=== PATIENT | male | born 1955 | race African-American/Black ===

== ENCOUNTER 2018-02-25 21:17 | Inpatient (IN) ==
[2018-02-25] MEDS ORDERED: PANTOPRAZOLE 40 MG VIAL IV STA (22:18)
[2018-02-25] MEDS ORDERED: SODIUM CHLORIDE 0.9% 1,000 ML IV STA (22:18)
[2018-02-25] MEDS ORDERED: ONDANSETRON 4 MG/2 ML VIAL IV STA (22:18)
[2018-02-25] MEDS ORDERED: ONDANSETRON 4 MG/2 ML VIAL ONE (22:57)
[2018-02-25] MEDS ORDERED: PANTOPRAZOLE 40 MG VIAL IV ONE (22:57)
[2018-02-25 23:58] LABS: Lactic Acid 1.6 MMOL/L (0.4-2.0)
[2018-02-26] LABS: Basophils % 0.5 % (0.0-0.8); Eosinophils # 0.2 10*3/uL (0.0-0.87); Eosinophils % 4.4 % (0.00-10.9); Hematocrit 33.1 VOL% (42.0-52.0); Immature Granulocytes % 0.5 %; Immature Granulocytes Absolute 0.02 #; Lymphocytes # 0.5 10*3/uL (1.4-4.0); Lymphocytes % 12.7 % (21.2-54.2); Mean Corpuscular HGB Conc 33.2 GM/DL (32-36); Mean Corpuscular Hemoglobin 25 PG (27-34); Mean Corpuscular Volume 75.1 FL (87-102); Mean Platelet Volume 10.7 FL (9.6-12.0); Monocytes # 0.4 10*3/uL (0.11-0.8); Monocytes % 10.8 % (1.7-12.7); Neutrophils # 2.9 10*3/uL (1.4-7.4); Neutrophils % 71.1 % (38.7-73.9); Platelet Count 156 T/CUMM (130-400); Red Blood Count 4.41 MC/CUMM (3.8-5.5); Red Cell Distribution Width 18.1 % (9.3-17.3); White Blood Count 4.1 T/CUMM (4-12)
[2018-02-26 00:20] LABS: Apearance,Urine Slightly Hazy (Clear); Bilirubin,Urine Negative (Negative); Blood, Urine Negative (Negative); Glucose,Urine (UA) Negative (Negative); Hyaline Casts,Urine 3 /LPF (0-3); Ketones,Urine Negative (Negative); Mucus,Urine Occasional /LPF (Occasional); Nitrite,Urine Negative (Negative); Protein,Urine 30 MG/DL; RBC,Urine 2 /HPF (0-4); Squamous Epithelial Cell,Urine Occasional /HPF (0-10); Urine Color Amber (Yellow); Urine Specific Gravity 1.029 (1.001-1.035); WBC,Urine 1 /HPF (0-6)
[2018-02-26 00:34] LABS: Alanine Aminotransferase 194 U/L (16-61); Albumin 2.6 G/DL (3.4-5.0); Alkaline Phosphatase 309 U/L (45-117); Amylase 100 U/L (25-115); Aspartate Amino Transferase 448 U/L (0-37); Blood Urea Nitrogen 17 MG/DL (7-18); Calcium 8.4 MG/DL (8.5-10.1); Glucose 82 MG/DL (74-106); Osmolality,Calculated 273.8 MOS/KG (273-304); Potassium 4.3 MMOL/L (3.5-5.1); Sodium 137 MMOL/L (136-145); Total Protein 6.2 G/DL (6.4-8.3); Troponin I Only < 0.015 NG/ML (0.00-0.045)
[2018-02-26] MEDS ORDERED: FLUCONAZOLE INJ 200 MG in PREMIX 1 EACH IV ONE (00:53)
[2018-02-26] MEDS ORDERED: TEMAZEPAM 7.5 MG CAPSULE PO PRN (02:08)
[2018-02-26] MEDS ORDERED: MYLANTA/LIDO VISC 2:1 300 ML BOTTLE SWISH/SWAL PRN (02:08)
[2018-02-26] MEDS ORDERED: MYLANTA/LIDO VISC 2:1 300 ML BOTTLE SWISH/SPIT PRN (02:08)
[2018-02-26] MEDS ORDERED: LACTULOSE 20 GM/30 ML UDCUP PO PRN (02:08)
[2018-02-26] MEDS ORDERED: ALUMINUM/MAGNES/SIMETH MAX STR 30 ML UDCUP PO PRN (02:08)
[2018-02-26] MEDS ORDERED: diphenhydrAMINE CAP 25 MG CAPSULE PO PRN (02:08)
[2018-02-26] MEDS ORDERED: ONDANSETRON 4 MG/2 ML VIAL IV PRN (02:08)
[2018-02-26] MEDS ORDERED: guaiFENesin 200 MG/10 ML UDCUP PO PRN (02:08)
[2018-02-26] MEDS ORDERED: BENZTROPINE 2 MG/2 ML AMP IV PRN (02:08)
[2018-02-26] MEDS ORDERED: ALPRAZolam 0.25 MG TABLET PO PRN (02:08)
[2018-02-26] MEDS ORDERED: ACETAMINOPHEN 325 MG TABLET PO PRN (02:08)
[2018-02-26] MEDS: SODIUM CHLORIDE 0.9% 1,000 ML IV SCH ×2 (03:40→17:04)
[2018-02-26 06:44] LABS: Albumin 2.3 G/DL (3.4-5.0); Bilirubin,Total 1.3 MG/DL (0.2-1.0); Calcium 8.1 MG/DL (8.5-10.1); Osmolality,Calculated 275.5 MOS/KG (273-304); Potassium 4.2 MMOL/L (3.5-5.1); Total Protein 5.3 G/DL (6.4-8.3); Uric Acid 6.2 MG/DL (3.5-7.2)
[2018-02-26] MEDS ORDERED: DEXTROSE 50% 25 GM/50 ML VIAL IV PRN (06:57)
[2018-02-26 08:14] LABS: Apearance,Urine CLEAR (Clear); Bilirubin,Urine Negative (Negative); Blood, Urine Negative (Negative); Glucose,Urine (UA) Negative (Negative); Ketones,Urine Negative (Negative); Mucus,Urine Occasional /LPF (Occasional); Nitrite,Urine Negative (Negative); Protein,Urine Negative; RBC,Urine <1 /HPF (0-4); Squamous Epithelial Cell,Urine Occasional /HPF (0-10); Urine Color Yellow (Yellow); WBC,Urine <1 /HPF (0-6)
[2018-02-26] MEDS ORDERED: ETOPOSIDE 160 MG in SODIUM CHLORIDE 0.9% 500 ML IV ONE (09:00)
[2018-02-26] MEDS: PANTOPRAZOLE 40 MG VIAL IV SCH (09:12)
[2018-02-26] MEDS ORDERED: MORPHINE 4 MG/1 ML VIAL IV SCH (21:00)
[2018-02-27 06:14] LABS: Basophils % 0.8 % (0.0-0.8); Eosinophils # 0.2 10*3/uL (0.0-0.87); Hematocrit 31.2 VOL% (42.0-52.0); Hemoglobin 10.8 GM/DL (14.0-18.0); Immature Granulocytes % 0.5 %; Immature Granulocytes Absolute 0.02 #; Lymphocytes # 0.3 10*3/uL (1.4-4.0); Lymphocytes % 8.5 % (21.2-54.2); Mean Corpuscular HGB Conc 34.6 GM/DL (32-36); Mean Corpuscular Hemoglobin 25 PG (27-34); Mean Corpuscular Volume 73.4 FL (87-102); Mean Platelet Volume 10.3 FL (9.6-12.0); Monocytes # 0.1 10*3/uL (0.11-0.8); Neutrophils # 3.3 10*3/uL (1.4-7.4); Neutrophils % 83.2 % (38.7-73.9); Platelet Count 122 T/CUMM (130-400); Red Blood Count 4.25 MC/CUMM (3.8-5.5); Red Cell Distribution Width 18.9 % (9.3-17.3)
[2018-02-27 06:53] LABS: Band Neutrophils 1 % (0-10); Eosinophils 5 % (0-10); Lymphocytes 3 % (20-55); Segmented Neutrophils 91 % (50-85); Total Cells Counted 100
[2018-02-27 06:54] LABS: Giant Platelets Few; Hypochromasia 1+; Ovalocytes Slight; Platelet Estimate Normal; Target Cells Few
[2018-02-27 06:56] LABS: Albumin 2.1 G/DL (3.4-5.0); Bilirubin,Total 1.7 MG/DL (0.2-1.0); Calcium 8.4 MG/DL (8.5-10.1); Osmolality,Calculated 273.7 MOS/KG (273-304); Potassium 4.4 MMOL/L (3.5-5.1); Total Protein 5.3 G/DL (6.4-8.3)
[2018-02-27] MEDS: SODIUM CHLORIDE 0.9% 1,000 ML IV SCH (09:50)
[2018-02-27] MEDS: PANTOPRAZOLE 40 MG VIAL IV SCH (09:51)
[2018-02-27] MEDS: FILGRASTIM-SNDZ 300 MCG/0.5 ML SYRINGE SUBCUT SCH (18:40)
[2018-02-28] MEDS: SODIUM CHLORIDE 0.9% 1,000 ML IV SCH ×2 (00:19→21:23)
[2018-02-28 05:27] LABS: Basophils % 0.6 % (0.0-0.8); Eosinophils # 0.1 10*3/uL (0.0-0.87); Eosinophils % 1.9 % (0.00-10.9); Hematocrit 30.5 VOL% (42.0-52.0); Hemoglobin 10.5 GM/DL (14.0-18.0); Immature Granulocytes % 0.6 %; Immature Granulocytes Absolute 0.02 #; Lymphocytes # 0.3 10*3/uL (1.4-4.0); Lymphocytes % 8.8 % (21.2-54.2); Mean Corpuscular HGB Conc 34.4 GM/DL (32-36); Mean Corpuscular Hemoglobin 25 PG (27-34); Mean Corpuscular Volume 73.7 FL (87-102); Mean Platelet Volume 11.1 FL (9.6-12.0); Monocytes # 0.1 10*3/uL (0.11-0.8); Monocytes % 2.8 % (1.7-12.7); Neutrophils # 2.7 10*3/uL (1.4-7.4); Neutrophils % 85.3 % (38.7-73.9); Platelet Count 91 T/CUMM (130-400); Red Blood Count 4.14 MC/CUMM (3.8-5.5); Red Cell Distribution Width 17.8 % (9.3-17.3); White Blood Count 3.2 T/CUMM (4-12)
[2018-02-28 05:55] LABS: Bilirubin,Total 1.6 MG/DL (0.2-1.0); Calcium 8.3 MG/DL (8.5-10.1); Potassium 4.2 MMOL/L (3.5-5.1)
[2018-02-28 06:22] LABS: Band Neutrophils 1 % (0-10); Eosinophils 1 % (0-10); Hypochromasia 1+; Lymphocytes 2 % (20-55); Segmented Neutrophils 95 % (50-85); Total Cells Counted 100
[2018-02-28 06:23] LABS: Microcytosis 1+; Ovalocytes Few; Platelet Estimate Decreased; Target Cells Slight
[2018-02-28] MEDS: PANTOPRAZOLE 40 MG VIAL IV SCH (08:33)
[2018-02-28] MEDS: FILGRASTIM-SNDZ 300 MCG/0.5 ML SYRINGE SUBCUT SCH (08:37)
[2018-02-28] MEDS ORDERED: MAGNESIUM HYDROXIDE SUSP 30 ML UDCUP PO PRN (10:47)
[2018-02-28] MEDS ORDERED: oxyCODONE IR 5 MG TABLET PO PRN (10:50)
[2018-02-28] MEDS ORDERED: MAGNESIUM SULF RIDER 2 GM in PREMIX 1 EACH IV ONE (10:52)
[2018-02-28] MEDS: MORPHINE 4 MG/1 ML VIAL IV PRN (20:06)
[2018-03-01] MEDS: SODIUM CHLORIDE 0.9% 1,000 ML IV SCH (04:31)
[2018-03-01 06:29] LABS: Basophils # 0.1 10*3/uL (0.0-0.2); Basophils % 0.6 % (0.0-0.8); Eosinophils % 0.2 % (0.00-10.9); Hematocrit 28.6 VOL% (42.0-52.0); Hemoglobin 9.7 GM/DL (14.0-18.0); Immature Granulocytes % 10.3 %; Immature Granulocytes Absolute 1.63 #; Lymphocytes # 0.3 10*3/uL (1.4-4.0); Lymphocytes % 2.1 % (21.2-54.2); Mean Corpuscular HGB Conc 33.9 GM/DL (32-36); Mean Corpuscular Hemoglobin 25 PG (27-34); Mean Corpuscular Volume 73.3 FL (87-102); Mean Platelet Volume 11.9 FL (9.6-12.0); Monocytes # 0.1 10*3/uL (0.11-0.8); Monocytes % 0.5 % (1.7-12.7); Neutrophils # 13.6 10*3/uL (1.4-7.4); Neutrophils % 86.3 % (38.7-73.9); Red Cell Distribution Width 17.1 % (9.3-17.3); White Blood Count 15.8 T/CUMM (4-12)
[2018-03-01 06:30] LABS: Platelet Count 72 T/CUMM (130-400)
[2018-03-01 06:58] LABS: Bilirubin,Total 1.3 MG/DL (0.2-1.0); Calcium 7.9 MG/DL (8.5-10.1)
[2018-03-01 06:59] LABS: Osmolality,Calculated 271.8 MOS/KG (273-304); Potassium 4.1 MMOL/L (3.5-5.1)
[2018-03-01 07:35] LABS: Band Neutrophils 5 % (0-10); Elliptocytes Few; Hypochromasia 1+; Lymphocytes 1 % (20-55); Platelet Estimate Decreased; Segmented Neutrophils 94 % (50-85); Target Cells Few; Total Cells Counted 100
[2018-03-01 07:37] LABS: Microcytosis 1+
[2018-03-01] MEDS: FILGRASTIM-SNDZ 300 MCG/0.5 ML SYRINGE SUBCUT SCH (08:34)
[2018-03-01] MEDS: MORPHINE 4 MG/1 ML VIAL IV PRN ×2 (13:49→20:02)
[2018-03-02] MEDS: SODIUM CHLORIDE 0.9% 1,000 ML IV SCH ×3 (00:59→05:40)
[2018-03-02 07:24] LABS: Basophils # 0.1 10*3/uL (0.0-0.2); Eosinophils % 0.3 % (0.00-10.9); Hematocrit 27.6 VOL% (42.0-52.0); Hemoglobin 9.8 GM/DL (14.0-18.0); Immature Granulocytes % 21.2 %; Immature Granulocytes Absolute 1.91 #; Lymphocytes # 0.3 10*3/uL (1.4-4.0); Lymphocytes % 3.8 % (21.2-54.2); Mean Corpuscular HGB Conc 35.5 GM/DL (32-36); Mean Corpuscular Hemoglobin 26 PG (27-34); Mean Corpuscular Volume 72.3 FL (87-102); Monocytes % 0.3 % (1.7-12.7); Neutrophils # 6.6 10*3/uL (1.4-7.4); Neutrophils % 73.4 % (38.7-73.9); Red Blood Count 3.82 MC/CUMM (3.8-5.5); Red Cell Distribution Width 17.5 % (9.3-17.3)
[2018-03-02 07:34] LABS: Platelet Count 68 T/CUMM (130-400)
[2018-03-02 08:13] LABS: Band Neutrophils 1 % (0-10); Elliptocytes Few; Hypochromasia 1+; Lymphocytes 2 % (20-55); Microcytosis 1+; Platelet Estimate Decreased; Segmented Neutrophils 96 % (50-85); Target Cells Few; Total Cells Counted 100
[2018-03-02 13:42] LABS: Folate 9.9 NG/ML (5.4-24.0); Vitamin B12 > 2000 PG/ML (211-911)
[2018-03-03 17:16] LABS: Basophils % 1.2 % (0.0-0.8); Eosinophils # 0.1 10*3/uL (0.0-0.87); Eosinophils % 2.3 % (0.00-10.9); Hematocrit 25.5 VOL% (42.0-52.0); Hemoglobin 8.8 GM/DL (14.0-18.0); Immature Granulocytes % 4.3 %; Immature Granulocytes Absolute 0.15 #; Lymphocytes # 0.4 10*3/uL (1.4-4.0); Mean Corpuscular HGB Conc 34.5 GM/DL (32-36); Mean Corpuscular Hemoglobin 25 PG (27-34); Mean Corpuscular Volume 73.5 FL (87-102); Monocytes % 0.9 % (1.7-12.7); Neutrophils # 2.8 10*3/uL (1.4-7.4); Neutrophils % 80.3 % (38.7-73.9); Red Blood Count 3.47 MC/CUMM (3.8-5.5); Red Cell Distribution Width 17.2 % (9.3-17.3); White Blood Count 3.5 T/CUMM (4-12)
[2018-03-03 17:22] LABS: Platelet Count 39 T/CUMM (130-400)
[2018-03-03] MEDS: methylPREDNISolone SOD SUC 125 MG/2 ML VIAL IV SCH (20:09)
[2018-03-03] MEDS: FILGRASTIM-SNDZ 300 MCG/0.5 ML SYRINGE SUBCUT SCH (20:11)
[2018-03-03] MEDS: SODIUM CHLORIDE 0.9% 1,000 ML IV SCH (21:48)
[2018-03-04] MEDS: methylPREDNISolone SOD SUC 125 MG/2 ML VIAL IV SCH ×3 (01:24→17:49)
[2018-03-04] MEDS: SODIUM CHLORIDE 0.9% 1,000 ML IV SCH (01:28)
[2018-03-04 06:40] LABS: Basophils % 0.8 % (0.0-0.8); Hematocrit 27.4 VOL% (42.0-52.0); Hemoglobin 9.6 GM/DL (14.0-18.0); Immature Granulocytes % 6.4 %; Immature Granulocytes Absolute 0.25 #; Lymphocytes # 0.2 10*3/uL (1.4-4.0); Lymphocytes % 4.6 % (21.2-54.2); Mean Corpuscular Hemoglobin 25 PG (27-34); Mean Corpuscular Volume 72.1 FL (87-102); Neutrophils # 3.4 10*3/uL (1.4-7.4); Neutrophils % 87.2 % (38.7-73.9); White Blood Count 3.9 T/CUMM (4-12)
[2018-03-04 06:49] LABS: Platelet Count 35 T/CUMM (130-400)
[2018-03-04 06:54] LABS: Band Neutrophils 3 % (0-10); Hypochromasia 1+; Lymphocytes 3 % (20-55); Metamyelocytes 1 %; Microcytosis 1+; Segmented Neutrophils 91 % (50-85); Target Cells Few; Total Cells Counted 100
[2018-03-04 06:55] LABS: Anisocytosis 1+; Ovalocytes Few; Platelet Estimate Decreased
[2018-03-04 07:11] LABS: Albumin 1.9 G/DL (3.4-5.0); Bilirubin,Total 1.4 MG/DL (0.2-1.0); Osmolality,Calculated 278.4 MOS/KG (273-304); Potassium 4.1 MMOL/L (3.5-5.1); Total Protein 5.1 G/DL (6.4-8.3)
[2018-03-04] MEDS: FILGRASTIM-SNDZ 300 MCG/0.5 ML SYRINGE SUBCUT SCH (09:27)
[2018-03-04] MEDS ORDERED: SKIN HEALING OINT (AQUAPHOR) 50 GM TUBE TOP PRN (14:23)
[2018-03-04 15:06] LABS: Aldolase 35.1 U/L (<7.7)
[2018-03-05] MEDS: methylPREDNISolone SOD SUC 125 MG/2 ML VIAL IV SCH ×2 (01:54→10:37)
[2018-03-05 04:38] LABS: Basophils % 0.7 % (0.0-0.8); Hematocrit 24.9 VOL% (42.0-52.0); Hemoglobin 8.5 GM/DL (14.0-18.0); Immature Granulocytes % 15.1 %; Immature Granulocytes Absolute 0.44 #; Lymphocytes # 0.3 10*3/uL (1.4-4.0); Lymphocytes % 9.6 % (21.2-54.2); Mean Corpuscular HGB Conc 34.1 GM/DL (32-36); Mean Corpuscular Hemoglobin 25 PG (27-34); Monocytes # 0.1 10*3/uL (0.11-0.8); Monocytes % 2.1 % (1.7-12.7); Neutrophils # 2.1 10*3/uL (1.4-7.4); Neutrophils % 72.5 % (38.7-73.9); Red Blood Count 3.41 MC/CUMM (3.8-5.5); Red Cell Distribution Width 16.3 % (9.3-17.3); White Blood Count 2.9 T/CUMM (4-12)
[2018-03-05 04:40] LABS: Platelet Count 25 T/CUMM (130-400)
[2018-03-05 05:01] LABS: Band Neutrophils 6 % (0-10); Hypochromasia 1+; Lymphocytes 4 % (20-55); Segmented Neutrophils 86 % (50-85); Target Cells Few; Total Cells Counted 100
[2018-03-05 05:02] LABS: Microcytosis 1+; Ovalocytes Slight; Platelet Estimate Decreased
[2018-03-05 05:22] LABS: Albumin 1.9 G/DL (3.4-5.0); Bilirubin,Total 1.2 MG/DL (0.2-1.0); Calcium 7.9 MG/DL (8.5-10.1); Osmolality,Calculated 278.4 MOS/KG (273-304); Potassium 3.9 MMOL/L (3.5-5.1)
[2018-03-05] MEDS: SODIUM CHLORIDE 0.9% 1,000 ML IV SCH ×2 (10:36→21:53)
[2018-03-05] MEDS: FILGRASTIM-SNDZ 300 MCG/0.5 ML SYRINGE SUBCUT SCH (10:40)
[2018-03-06 05:27] LABS: Basophils % 0.7 % (0.0-0.8); Hematocrit 25.4 VOL% (42.0-52.0); Hemoglobin 8.6 GM/DL (14.0-18.0); Immature Granulocytes % 8.2 %; Immature Granulocytes Absolute 0.12 #; Lymphocytes # 0.5 10*3/uL (1.4-4.0); Mean Corpuscular HGB Conc 33.9 GM/DL (32-36); Mean Corpuscular Hemoglobin 25 PG (27-34); Mean Corpuscular Volume 74.3 FL (87-102); Monocytes % 2.7 % (1.7-12.7); Neutrophils # 0.8 10*3/uL (1.4-7.4); Neutrophils % 51.4 % (38.7-73.9); Red Blood Count 3.42 MC/CUMM (3.8-5.5); Red Cell Distribution Width 16.4 % (9.3-17.3); White Blood Count 1.5 T/CUMM (4-12)
[2018-03-06 05:41] LABS: Platelet Count 15 T/CUMM (130-400)
[2018-03-06] MEDS ORDERED: SODIUM CHLORIDE 0.9% 1,000 ML IV PRN ×2 (05:55→06:38)
[2018-03-06 05:59] LABS: Albumin 1.9 G/DL (3.4-5.0); Bilirubin,Total 1.2 MG/DL (0.2-1.0); Osmolality,Calculated 281.1 MOS/KG (273-304); Potassium 3.4 MMOL/L (3.5-5.1)
[2018-03-06 06:07] LABS: Band Neutrophils 3 % (0-10); Giant Platelets Few; Hypochromasia 1+; Lymphocytes 29 % (20-55); Ovalocytes Slight; Platelet Estimate Decreased; Segmented Neutrophils 65 % (50-85); Target Cells Few; Total Cells Counted 100
[2018-03-06 06:08] LABS: Atypical Lymphocytes Few; Microcytosis 1+
[2018-03-06] MEDS ORDERED: predniSONE 20 MG TABLET PO SCH (09:00)
[2018-03-06] MEDS ORDERED: PANTOPRAZOLE 40 MG TABLET PO SCH (09:00)
[2018-03-06] MEDS: FILGRASTIM-SNDZ 300 MCG/0.5 ML SYRINGE SUBCUT SCH (09:43)
[2018-03-06 16:56] VITALS: BP 99/63
[2018-03-14 10:06] LABS: ACh Receptor (Muscle) Binding 0 nmol/L (<=0.02); AChR Ganglionic Neuronal Ab, S 0 nmol/L (<=0.02); CRMP-5-IgG, S Negative titer (<1:240); Striational (Striated Muscle) Negative titer (<1:120)
== END 2018-03-06 14:45 | disposition home or self-care (01) | DRG 180 ==
LOC: N.ED 21:17 → N.EDINP 21:17 → N.4E 02-26 02:07
PROVIDERS: ADMIT Specialist; ATTEND Specialist

== ENCOUNTER 2018-04-28 14:02 | Inpatient (IN) ==
[2018-04-28] MEDS ORDERED: MYLANTA/LIDO VISC 2:1 300 ML BOTTLE SWISH/SWAL PRN (16:48)
[2018-04-28] MEDS ORDERED: TEMAZEPAM 7.5 MG CAPSULE PO PRN (16:48)
[2018-04-28] MEDS ORDERED: ACETAMINOPHEN 325 MG TABLET PO PRN (16:48)
[2018-04-28] MEDS ORDERED: PROMETHAZINE INJ 25 MG in SODIUM CHLORIDE 0.9% 50 ML IV PRN (16:48)
[2018-04-28] MEDS ORDERED: chlorproMAZINE INJ 50 MG in SODIUM CHLORIDE 0.9% 100 ML IV PRN (16:48)
[2018-04-28] MEDS ORDERED: BENZTROPINE 2 MG/2 ML AMP IV PRN (16:48)
[2018-04-28] MEDS ORDERED: chlorproMAZINE INJ 25 MG in SODIUM CHLORIDE 0.9% 100 ML IV PRN (16:48)
[2018-04-28] MEDS ORDERED: ONDANSETRON 4 MG/2 ML VIAL IV PRN (16:48)
[2018-04-28] MEDS ORDERED: LACTULOSE 20 GM/30 ML UDCUP PO PRN (16:48)
[2018-04-28] MEDS ORDERED: MYLANTA/LIDO VISC 2:1 300 ML BOTTLE SWISH/SPIT PRN (16:48)
[2018-04-28] MEDS ORDERED: ALPRAZolam 0.25 MG TABLET PO PRN (16:48)
[2018-04-28] MEDS ORDERED: guaiFENesin 200 MG/10 ML UDCUP PO PRN (16:48)
[2018-04-28] MEDS ORDERED: diphenhydrAMINE CAP 25 MG CAPSULE PO PRN (16:48)
[2018-04-28] MEDS ORDERED: ALUMINUM/MAGNES/SIMETH MAX STR 30 ML UDCUP PO PRN (16:48)
[2018-04-28] MEDS ORDERED: traMADol 50 MG TABLET PO PRN (16:48)
[2018-04-28] MEDS ORDERED: LOPERAMIDE 2 MG CAPSULE PO PRN ×2 (16:48)
[2018-04-28] MEDS ORDERED: chlorproMAZINE 25 MG TABLET PO PRN (16:48)
[2018-04-28 17:20] LABS: Basophils % 0.1 % (0.0-0.8); Hemoglobin 9.2 GM/DL (14.0-18.0); Immature Granulocytes % 0.7 %; Immature Granulocytes Absolute 0.06 #; Lymphocytes # 0.5 10*3/uL (1.4-4.0); Lymphocytes % 5.6 % (21.2-54.2); Mean Corpuscular HGB Conc 35.4 GM/DL (32-36); Mean Corpuscular Hemoglobin 28 PG (27-34); Mean Corpuscular Volume 78.8 FL (87-102); Mean Platelet Volume 10.2 FL (9.6-12.0); Monocytes # 0.6 10*3/uL (0.11-0.8); Monocytes % 7.1 % (1.7-12.7); NRBC # 0.03 10*3/uL; Neutrophils # 7.5 10*3/uL (1.4-7.4); Neutrophils % 86.5 % (38.7-73.9); Platelet Count 181 T/CUMM (130-400); White Blood Count 8.7 T/CUMM (4-12)
[2018-04-28 18:01] LABS: Albumin 1.8 G/DL (3.4-5.0); Bilirubin,Total 2.7 MG/DL (0.2-1.0); Calcium 9.3 MG/DL (8.5-10.1); Osmolality,Calculated 276.5 MOS/KG (273-304); Potassium 4.1 MMOL/L (3.5-5.1); Total Protein 6.5 G/DL (6.4-8.3); Uric Acid 7.5 MG/DL (3.5-7.2)
[2018-04-28 23:19] LABS: Amorphous Crystals,Urine Occasional /HPF (Few); Apearance,Urine CLOUDY (Clear); Bilirubin,Urine Negative (Negative); Blood, Urine Negative (Negative); Glucose,Urine (UA) Negative (Negative); Granular Casts,Urine 7 /LPF (0-1); Hyaline Casts,Urine 28 /LPF (0-3); Ketones,Urine Negative (Negative); Mucus,Urine Many /LPF (Occasional); Nitrite,Urine Negative (Negative); Protein,Urine Negative; RBC,Urine 2 /HPF (0-4); Squamous Epithelial Cell,Urine Occasional /HPF (0-10); Urine Color Amber (Yellow); Urine Specific Gravity 1.014 (1.001-1.035); Urine Urobilinogen < 2.0 EU/DL (0.2-1.0); WBC,Urine 3 /HPF (0-6); White Blood Cell Casts,Urine 7 /LPF (<1)
[2018-04-29] MEDS ORDERED: DEXTROSE 50% 25 GM/50 ML VIAL IV PRN (10:25)
[2018-04-29] MEDS ORDERED: GLUCAGON 1 MG VIAL IM PRN (10:25)
[2018-04-29] MEDS: MULTIVITAMIN INJ 10 ML in AMINO ACIDS/DEXT/LYTES 4.25-5% 2,000 ML IV SCH (16:58)
[2018-04-29] MEDS: MAGNESIUM HYDROXIDE SUSP 30 ML UDCUP PO PRN (19:51)
[2018-04-30 08:59] LABS: Calcium 8.6 MG/DL (8.5-10.1); Osmolality,Calculated 281.4 MOS/KG (273-304); Prealbumin 4.4 MG/DL (20-40)
[2018-04-30] MEDS: oxyCODONE IR 5 MG TABLET PO PRN (10:55)
[2018-04-30] MEDS: predniSONE 10 MG TABLET PO SCH (10:57)
[2018-04-30] MEDS ORDERED: FAT EMULSION 20% 250 ML IV SCH (14:00)
[2018-04-30] MEDS: MULTIVITAMIN INJ 10 ML in AMINO ACIDS/DEXT/LYTES 4.25-5% 2,000 ML IV SCH (14:27)
[2018-04-30] MEDS ORDERED: MULTIVITAMIN INJ 10 ML in AMINO ACIDS/DEXT/LYTES 5-15% 2,000 ML IV SCH (17:00)
[2018-04-30] MEDS ORDERED: DEXTROSE 10% 1,000 ML IV PRN (17:00)
[2018-04-30] MEDS ORDERED: AMINO ACIDS/DEXT/LYTES 5-15% 2,000 ML IV SCH (17:00)
[2018-04-30] MEDS: FAT EMULSION 20% 250 ML IV SCH (17:50)
[2018-05-01 05:59] LABS: Eosinophils % 0.1 % (0.00-10.9); Hematocrit 24.7 VOL% (42.0-52.0); Hemoglobin 9.4 GM/DL (14.0-18.0); Immature Granulocytes % 0.6 %; Immature Granulocytes Absolute 0.06 #; Lymphocytes # 0.7 10*3/uL (1.4-4.0); Lymphocytes % 6.9 % (21.2-54.2); Mean Corpuscular HGB Conc 38.1 GM/DL (32-36); Mean Corpuscular Hemoglobin 31 PG (27-34); Mean Corpuscular Volume 80.2 FL (87-102); Mean Platelet Volume 12.5 FL (9.6-12.0); Monocytes # 0.5 10*3/uL (0.11-0.8); Monocytes % 4.8 % (1.7-12.7); NRBC # 0.04 10*3/uL; Neutrophils # 9.1 10*3/uL (1.4-7.4); Neutrophils % 87.6 % (38.7-73.9); Platelet Count 162 T/CUMM (130-400); Red Blood Count 3.08 MC/CUMM (3.8-5.5); Red Cell Distribution Width 27.1 % (9.3-17.3); White Blood Count 10.4 T/CUMM (4-12)
[2018-05-01 06:18] LABS: INR 1.4; PT Patient Result 14.8 SECS; Partial Thromboplastin Time 34.8 SECS (0-40)
[2018-05-01 06:20] LABS: Albumin 1.6 G/DL (3.4-5.0); Bilirubin,Total 3.1 MG/DL (0.2-1.0); Calcium 8.1 MG/DL (8.5-10.1); Calcium 8.2 MG/DL (8.5-10.1); Osmolality,Calculated 278.5 MOS/KG (273-304); Osmolality,Calculated 280.4 MOS/KG (273-304); Potassium 3.8 MMOL/L (3.5-5.1); Potassium 3.9 MMOL/L (3.5-5.1)
[2018-05-01 06:27] LABS: Hypochromasia Slight; Platelet Estimate Normal; Target Cells Few
[2018-05-01 06:28] LABS: Microcytosis Slight
[2018-05-01] MEDS: oxyCODONE IR 5 MG TABLET PO PRN ×2 (09:37→19:40)
[2018-05-01] MEDS: predniSONE 10 MG TABLET PO SCH (09:37)
[2018-05-01] MEDS: FAT EMULSION 20% 250 ML IV SCH (14:15)
[2018-05-01] MEDS: MULTIVITAMIN INJ 10 ML in AMINO ACIDS/DEXT/LYTES 5-15% 2,000 ML IV SCH (17:01)
[2018-05-02 05:21] LABS: Basophils % 0.2 % (0.0-0.8); Eosinophils % 0.1 % (0.00-10.9); Hematocrit 25.9 VOL% (42.0-52.0); Immature Granulocytes % 0.7 %; Immature Granulocytes Absolute 0.07 #; Lymphocytes # 0.7 10*3/uL (1.4-4.0); Lymphocytes % 7.4 % (21.2-54.2); Mean Corpuscular HGB Conc 34.7 GM/DL (32-36); Mean Corpuscular Hemoglobin 28 PG (27-34); Mean Corpuscular Volume 81.4 FL (87-102); Mean Platelet Volume 11.3 FL (9.6-12.0); Monocytes # 0.7 10*3/uL (0.11-0.8); Monocytes % 7.3 % (1.7-12.7); NRBC # 0.03 10*3/uL; Neutrophils # 8.1 10*3/uL (1.4-7.4); Neutrophils % 84.3 % (38.7-73.9); Platelet Count 136 T/CUMM (130-400); Red Blood Count 3.18 MC/CUMM (3.8-5.5); Red Cell Distribution Width 27.3 % (9.3-17.3); White Blood Count 9.6 T/CUMM (4-12)
[2018-05-02 05:55] LABS: Albumin 1.7 G/DL (3.4-5.0); Bilirubin,Total 2.8 MG/DL (0.2-1.0); Calcium 8.3 MG/DL (8.5-10.1); Osmolality,Calculated 280.4 MOS/KG (273-304); Total Protein 6.3 G/DL (6.4-8.3)
[2018-05-02 06:51] LABS: Macrocytosis 1+; Polychromasia Slight; Target Cells Slight
[2018-05-02] MEDS: predniSONE 10 MG TABLET PO SCH (09:06)
[2018-05-02] MEDS: oxyCODONE IR 5 MG TABLET PO PRN ×2 (09:07→15:13)
[2018-05-02] MEDS: MULTIVITAMIN INJ 10 ML in AMINO ACIDS/DEXT/LYTES 5-15% 2,000 ML IV SCH (13:47)
[2018-05-02] MEDS: FAT EMULSION 20% 250 ML IV SCH (13:48)
[2018-05-02] MEDS: MAGNESIUM HYDROXIDE SUSP 30 ML UDCUP PO PRN ×2 (18:39→18:41)
[2018-05-03] MEDS: oxyCODONE IR 5 MG TABLET PO PRN (08:52)
[2018-05-03] MEDS: predniSONE 10 MG TABLET PO SCH (10:21)
[2018-05-03] MEDS: MULTIVITAMIN INJ 10 ML in AMINO ACIDS/DEXT/LYTES 5-15% 2,000 ML IV SCH (11:06)
[2018-05-03] MEDS: MORPHINE 4 MG/1 ML VIAL IV PRN ×2 (11:43→16:56)
[2018-05-03] MEDS: FAT EMULSION 20% 250 ML IV SCH (13:58)
[2018-05-04 01:57] VITALS: BP 67/41
== END 2018-05-04 03:44 | disposition expired | DRG 641 ==
LOC: INTOOBSV 15:32 → N.4E 15:32
PROVIDERS: ADMIT Specialist; ATTEND Specialist